=== PATIENT | male | born 1990 | race Caucasian/White ===

== ENCOUNTER 2016-11-04 06:06 | Emergency (ER) | payer OTHER ==
[2016-11-04] MEDS ORDERED: NS 0.9% 1000 ML* 1,000 ML IV SCH ×2 (06:30→06:45)
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
[2016-11-04 07:08] LABS: Hematocrit 46 % (42-52); Hemoglobin 15.2 g/dl (14.0-18.0); Mean Corpuscular HGB Conc 33 g/dl (31-36); Mean Corpuscular Hemoglobin 29 pg (27-31); Mean Corpuscular Volume 87 fL (80-94); Mean Platelet Volume 9 um3 (7.4-10.4); Red Blood Count 5.23 10^6/ul (4.0-5.4); Red Cell Distribution Width 13 % (10.5-15); White Blood Count 13.4 10^3/ul (3.5-10.8)
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
[2016-11-04 07:26] LABS: Albumin 4.5 g/dL (3.2-5.2); BUN/Creatinine Ratio 9.4 (8-20); Calcium 9.3 mg/dL (8.6-10.3); EGFR African American 110.4 (>60); EGFR Non-African American 85.8 (>60); Globulin 2.8 g/dL (2-4); Potassium 3.8 mmol/L (3.5-5.0); Total Bilirubin 0.9 mg/dL (0.2-1.0); Total Protein 7.3 g/dL (6.4-8.9)
[2016-11-04] MEDS ORDERED: ceFAZolin VIAL(*) 1 GM in NS 0.9% 50 ML* 50 ML IVPB SCH (07:30)
[2016-11-04] MEDS ORDERED: Tetan/Diph/Pertus SYR(Tdap)* 0.5 ML SYR(BOOSTRIX) use SYR IM ONE (11:06)
[2016-11-04 12:34] VITALS: BP 130/62
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
== END 2016-11-04 12:30 | disposition home or self-care (01) ==
LOC: ED 06:06
DX: S62.101A Fracture of unspecified carpal bone, right wrist, initial encounter for closed fracture (principal); S62.302A Unspecified fracture of third metacarpal bone, right hand, initial encounter for closed fracture; S62.300A Unspecified fracture of second metacarpal bone, right hand, initial encounter for closed fracture; W39.XXXA Discharge of firework, initial encounter; Y93.89 Activity, other specified; Y92.89 Other specified places as the place of occurrence of the external cause
CPT/HCPCS: 36415; 80053; 85025; 85610; 85730; 86850; 86900; 86901; 90715; 99284; J0690